=== PATIENT | female | born 1950 ===

== ENCOUNTER 2022-01-09 19:14 | Emergency (ER) | payer MEDICARE ==
--- NOTE | 2022-01-09 21:21 | Emergency Department Report ---
ED General Adult HPI - General Chief complaint: Abdominal Pain Stated complaint: PER [facility] LOW O2 Time Seen by Provider: 01/09/22 20:43 Source: patient, EMS Mode of arrival: Stretcher Limitations: Physical Limitation - History of Present Illness Initial comments: Chief complaint: I am not hurting. Get me out of here. HPI: This is a 71-year-old female with history of diabetes mellitus, HIV, CVA, HTN who presents with low oxygen. Patient has transient abdominal pain. She is now pain free. -: Gradual, hour(s) (2 hours) Location: abdomen Radiation: abdomen Severity scale (0 -10): 0 Quality: dull Consistency: now resolved Improves with: none Worsens with: none Associated Symptoms: denies other symptoms Treatments Prior to Arrival: none, other (EMS transportation) - Related Data Allergies Allergy/AdvReac Type Severity Reaction Status Date / Time No Known Allergies Allergy Unverified 01/09/22 20:31 ED Review of Systems ROS: Stated complaint: PER [facility] LOW O2 Other details as noted in HPI Comment: All other systems reviewed and negative Constitutional: denies: chills, fever, malaise Respiratory: denies: cough, shortness of breath Cardiovascular: denies: chest pain Gastrointestinal: abdominal pain. denies: nausea, vomiting ED Past Medical Hx - Past Medical History Previous Medical History?: Yes Hx Diabetes: Yes Hx HIV: Yes Additional medical history: Dysphagia. Embolism - Surgical History Past Surgical History?: No - Social History Smoking Status: Current Every Day Smoker Substance Use Type: None, Cocaine ED Physical Exam - General Limitations: Physical Limitation General appearance: alert, in no apparent distress - Head Head exam: Present: atraumatic, normocephalic - Eye Eye exam: Present: normal appearance - ENT ENT exam: Present: mucous membranes moist - Neck Neck exam: Present: normal inspection, full ROM - Respiratory Respiratory exam: Present: normal lung sounds bilaterally. Absent: respiratory distress, wheezes, rales, rhonchi - Cardiovascular Cardiovascular Exam: Present: regular rate, normal rhythm, normal heart sounds. Absent: systolic murmur, diastolic murmur, rubs, gallop - GI/Abdominal GI/Abdominal exam: Present: soft, normal bowel sounds. Absent: distended, tenderness, guarding, rebound - Extremities Exam Extremities exam: Present: other (Manage right medial leg) - Back Exam Back exam: Present: normal inspection - Neurological Exam Neurological exam: Present: alert, oriented X3 - Psychiatric Psychiatric exam: Present: normal affect, normal mood - Skin Skin exam: Present: warm, dry, intact, normal color. Absent: rash ED Course Vital Signs 01/09/22 01/09/22 20:20 20:35 Temperature 99 F 97.5 F L Pulse Rate 120 H 106 H Respiratory 18 17 Rate Blood Pressure 90/60 Blood Pressure 126/77 [Left] O2 Sat by Pulse 92 100 Oximetry ED Medical Decision Making - Lab Data Vital Signs - 24 hr 01/09/22 01/09/22 20:20 20:35 Temperature 99 F 97.5 F L Pulse Rate 120 H 106 H Respiratory 18 17 Rate Blood Pressure 90/60 Blood Pressure 126/77 [Left] O2 Sat by Pulse 92 100 Oximetry - Medical Decision Making Patient presents from [facility] with report of low oxygen saturation. On arrival oxygen saturation 99% on room air. Current vital signs heart rate 99, blood pressure 118/60 respiratory rate 16 oxygen saturation remains 99% on room air. Patient's tachycardia and hypotension were estimated numbers upon arrival. Patient's range of blood pressure systolic 117 to 126 mmH g. Critical care attestation.: If time is entered above; I have spent that time in minutes in the direct care of this critically ill patient, excluding procedure time. ED Disposition Clinical Impression: Abnormal vital signs, Abdominal pain Disposition: [address] [place] [address] Is pt being admited?: No Does the pt Need Aspirin: No Condition: Stable Instructions: Abdominal Pain (ED)
[2022-01-10 08:40] VITALS: BP 125/99
== END 2022-01-10 08:41 ==
LOC: ED 19:14
DX: R10.9 Unspecified abdominal pain (principal); R94.2 Abnormal results of pulmonary function studies; E11.9 Type 2 diabetes mellitus without complications; F17.200 Nicotine dependence, unspecified, uncomplicated; F14.90 Cocaine use, unspecified, uncomplicated; Z79.899 Other long term (current) drug therapy
CPT/HCPCS: 99283

== ENCOUNTER 2022-02-07 16:37 | Emergency (ER) | payer MEDICARE ==
[~2022-02-07 16:37] MED LIST: DOPamine DRIP 800 MG/D5W 250ML PreMix IV ONE; EPINEPHrine 1 MG/10 ML SYRINGE ONE; SODIUM BICARB 8.4% 50 MEQ/50 ML SYRINGE IV ONE
[2022-02-07] MEDS ORDERED: SODIUM CHLORIDE 0.9% 1000 ML 1,000 ML IV ONE (16:43)
--- NOTE | 2022-02-07 16:52 | Emergency Department Report ---
HPI - General Time Seen by Provider: 02/07/22 16:41 - HPI HPI: Room 20 The patient is a 71-year-old female present with chief complaint cardiac arrest. Per EMS the patient was found with agonal respirations in a [facility] bed. Patient last known well time was 14:30. EMS was called and arrived on scene at 16:07 to find the patient unresponsive and in asystole. ACLS protocols were initiated however EMS was unable to intubate or establish IV access so chest compressions were performed until the patient arrived in the ED. In the ED the patient was intubated by myself using a 7.0 ET tube and the glide scope. IV access was established by nursing and ACLS protocols were continued. There was eventual return of spontaneous circulation. ED Past Medical Hx - Past Medical History Hx Diabetes: Yes Hx HIV: Yes Additional medical history: Dysphagia. Embolism - Family History Family history: no significant - Social History Smoking Status: Unknown if ever smoked Substance Use Type: None, Cocaine ED Review of Systems ROS: Stated complaint: CARDIAC ARREST Other details as noted in HPI Comment: Unobtainable due to pts medical conditions Physical Exam - Physical Exam Physical Exam: GENERAL: The patient is well-developed well-nourished female lying on stretcher being bagged via BVM and receiving chest compressions from EMS. [] HEENT: Normocephalic. Atraumatic. NECK: Supple. Trachea midline CHEST/LUNGS: No spontaneous respirations, breath sounds equal bilaterally with bagging after intubation by myself HEART/CARDIOVASCULAR: No heart sounds, asystole on monitor ABDOMEN: Abdomen is soft, nontender. SKIN: There is no rash. There is no edema. There is no diaphoresis. Evidence of skin graft from left thigh NEURO: GCS 3 T MUSCULOSKELETAL: There is no evidence of acute injury. ED Course - Reevaluation(s) Reevaluation #1: 02/07/22 18:15 Family present and states that the patient is DNR and they would like to withdraw care Reevaluation #2: 02/07/22 19:46 Asystole in all leads on monitor. No spontaneous respirations. No heart sounds. Negative oculocephalic reflex. Patient - Consultations Consultation #1: 02/07/22 16:49 EKG sent to and discussed with smoke chaser Dr. Cox- not an acute AR - Central Line Placement Right Femoral Consent Obtained: emergent situation Time Out Performed: Yes Patient Placed on Monitor/Pulse Ox: Yes MD Prep: mask, gown, gloves Central Line Prep: Chlorhexidine scrub Local Anesthesia Used: Lidocaine 1% Amount of Anesthesia Used (mls): 5 Ultrasound Used for Placement: No Central Line Lumen Inserted: triple Bloods Obtained for Lab: No Central Line Position: good blood return Dressing Applied: Tegaderm Patient Tolerated Procedure: no complications Complications: other (Multiple attempts required prior to cannulation) - Chest Tube Chest Tube Location: forth interspace Size of Lao Tube (cm): 12 (Heimlich) Chest Tube Procedure: betadine prep Anesthesia: 1% Lidocaine Volume Anesthetic (ccs): 5 Sorto of Air Hanson: No Number of Attempts: 1 Tube Drainage: see nurses notes Tube Sutured to Skin: Yes Post Procedure CXR?: Yes - Intubation Time Out Performed: No Sedative: none Laryngoscope: fiberoptic video scope Size: 3 Assist Device Used: fiberoptic device ET Tube Size: 7 Tube Secured Depth (cm): 21 Tube Secured Location: lips Tube Placement Confirmation: visualized tube passing t, equal breath sounds bilat, no breath sounds over epi, confirmation by capnometr Patient Tolerated Procedure: no complications Intubation Complications: none ED Medical Decision Making - Lab Data Laboratory Tests 02/07/22 17:45 ABG pH 7.141 L* ABG pCO2 27.8 ABG pO2 299.1 H ABG HCO3 9.3 L ABG O2 Saturation 99.4 H ABG O2 Content 9.2 ABG Base Excess -18.1 L ABG Hemoglobin 6.1 L ABG Carboxyhemoglobin 1.0 ABG Methemoglobin 0.4 Oxyhemoglobin 98.1 FiO2 100 - Radiology Data Radiology results: report reviewed (Chest x-ray #1, chest x-ray #2), image reviewed (Chest x-ray #1, chest x-ray #2) interpreted by me: Chest x-ray #1-ET tube in appropriate position. Small apical pneumothorax. Chest x-ray #2-chest tube in appropriate position. Interval resolution of apical pneumothorax. [facility] [address] [place] [address] XRay Report Signed Patient: JOI WALTERS MR#: [id number] : 1950 Acct:[id number] Age/Sex: 71 / F ADM Date: 02/07/22 Loc: ED Attending Dr: Ordering Physician: YOSSI BARBA MD Date of Service: 02/07/22 Procedure(s): XR chest 1V ap Accession Number(s): [id number] cc: YOSSI BARBA MD Fluoro Time In Minutes: CHEST 1 VIEW INDICATION / CLINICAL INFORMATION: Status postcardiac arrest. COMPARISON: None available. FINDINGS: SUPPORT DEVICES: Endotracheal tube is present. The tip is approximately 1.9 cm from the moises. HEART / MEDIASTINUM: No significant abnormality. LUNGS / PLEURA: There is a small right pneumothorax. The vertical diameter in the right lung apex measures 1.9 cm. There is some mild pulmonary vascular congestion and some minimal bibasilar atelectasis, otherwise the lungs are grossly clear. ADDITIONAL FINDINGS: I suspect there are some subtle right rib fractures present as gas is seen in the soft tissues overlying the right lateral chest wall. Fractures are not confidently identified radiographically but presumably account for the small right pneumothorax. There is no hemothorax or significant effusion present. IMPRESSION: 1. Small right pneumothorax. The presence of subcutaneous gas in the right lateral chest soft tissues which suggest the presence of probable rib fractures although they are not confidently identified. 2. Mild pulmonary vascular congestion and mild bibasilar atelectasis, otherwise the lungs are grossly clear. CRITICAL RESULT: Time of Discovery: 1557 HRS FUSION ANALYST Time of Communication: 1600 hours FUSION ANALYST Licensed Practitioner Receiving Report: Dr. BARBA Read Back Performed: Yes. Signer Name: Naya Parsons MD Signed: 02/07/2022 5:00 PM Workstation Name: [id number] Transcribed By: JR Dictated By: Naya Parsons MD Electronically Authenticated By: Naya Parsons MD Signed Date/Time: 02/07/22 1700 DD/ 53 TD/TT: [facility] [address] [place] [address] XRay Report Signed Patient: JOI WALTERS MR#: [id number] : 1950 Acct:[id number] Age/Sex: 71 / F ADM Date: 02/07/22 Loc: ED Attending Dr: Ordering Physician: YOSSI BARBA MD Date of Service: 02/07/22 Procedure(s): XR chest 1V ap Accession Number(s): [id number] cc: YOSSI BARBA MD Fluoro Time In Minutes: CHEST 1 VIEW INDICATION / CLINICAL INFORMATION: Status post chest tube. COMPARISON: 02/07/2022 at 1647 hours FINDINGS: SUPPORT DEVICES: Interval placement of smallbore right chest tube. HEART / MEDIASTINUM: No significant abnormality. LUNGS / PLEURA: Previously noted pulmonary vascular congestion and bibasilar atelectasis has shown improvement. Previously noted small right pneumothorax has resolved following placement of chest tube. ADDITIONAL FINDINGS: Subcutaneous air in the right lateral chest wall and breast persists. A few anterolateral right rib fractures are now visible. IMPRESSION: 1. Resolution of previously noted small right pneumothorax following right chest tube. 2. Overall improvement in the appearance of the lungs. 3. A few right anterolateral rib fractures are now visible. Signer Name: Naya Parsons MD Signed: 02/07/2022 6:15 PM Workstation Name: [id number] Transcribed By: JR Dictated By: Naya Parsons MD Electronically Authenticated By: Naya Parsons MD Signed Date/Time: 02/07/221814 DD/ 13 TD/TT: - Differential Diagnosis Cardiac arrest Critical care attestation.: If time is entered above; I have spent that time in minutes in the direct care of this critically ill patient, excluding procedure time. ED Disposition Clinical Impression: Cardiac arrest, Pneumothorax Disposition: 20 Is pt being admited?: No Does the pt Need Aspirin: No Condition: Poor Time of Disposition: 19:46 (Patient )
--- NOTE | 2022-02-07 17:05 | XRay Report ---
CHEST 1 VIEW INDICATION / CLINICAL INFORMATION: Status postcardiac arrest. COMPARISON: None available. FINDINGS: SUPPORT DEVICES: Endotracheal tube is present. The tip is approximately 1.9 cm from the moises. HEART / MEDIASTINUM: No significant abnormality. LUNGS / PLEURA: There is a small right pneumothorax. The vertical diameter in the right lung apex luther sures 1.9 cm. There is some mild pulmonary vascular congestion and some minimal bibasilar atelectasis , otherwise the lungs are grossly clear. ADDITIONAL FINDINGS: I suspect there are some subtle right rib fractures present as gas is seen in th e soft tissues overlying the right lateral chest wall. Fractures are not confidently identified radio graphically but presumably account for the small right pneumothorax. There is no hemothorax or signif icant effusion present. IMPRESSION: 1. Small right pneumothorax. The presence of subcutaneous gas in the right lateral chest soft tissues which suggest the presence of probable rib fractures although they are not confidently identified. 2. Mild pulmonary vascular congestion and mild bibasilar atelectasis, otherwise the lungs are grossly clear. CRITICAL RESULT: Time of Discovery: 1557 HRS LINE CONSTRUCTION SUPERINTENDENT Time of Communication: 1600 hours LINE CONSTRUCTION SUPERINTENDENT Licensed Practitioner Receiving Report: Dr. BARBA Read Back Performed: Yes. Signer Name: Naya Parsons MD Signed: 02/07/2022 5:00 PM Workstation Name: [id number]
[2022-02-07] MEDS ORDERED: LIDOCAINE (1%) 10 MG/1 ML VIAL 20 ML MDV INFILTRATI ONE (17:24)
[2022-02-07] MEDS ORDERED: DOPamine 800 MG/D5W 250ML 800 MG/250 ML BAG IV ONE ×2 (17:49→18:07)
[2022-02-07 17:53] LABS: ABG Base Excess -18.1 mmol/L (-2.0-3.0); ABG HCO3 9.3 mmol/L (20.0-26.0); ABG Methemoglobin 0.4 % (0.0-1.5); ABG Oxygen Saturation 99.4 % (95.0-99.0); ABG PCO2 27.8 mm Hg
[2022-02-07 17:55] LABS: ABG PO2 299.1 mm Hg (80.0-90.0)
[2022-02-07 17:57] LABS: ABG PH 7.141 pH Units (7.350-7.450)
[2022-02-07] MEDS ORDERED: NORepinephrine/NS 8 MG-250 ML 8 MG/250 ML INFUS..BTL IV SCH (18:00)
--- NOTE | 2022-02-07 18:19 | XRay Report ---
CHEST 1 VIEW INDICATION / CLINICAL INFORMATION: Status post chest tube. COMPARISON: 02/07/2022 at 1647 hours FINDINGS: SUPPORT DEVICES: Interval placement of smallbore right chest tube. HEART / MEDIASTINUM: No significant abnormality. LUNGS / PLEURA: Previously noted pulmonary vascular congestion and bibasilar atelectasis has shown im provement. Previously noted small right pneumothorax has resolved following placement of chest tube. ADDITIONAL FINDINGS: Subcutaneous air in the right lateral chest wall and breast persists. A few ante rolateral right rib fractures are now visible. IMPRESSION: 1. Resolution of previously noted small right pneumothorax following right chest tube. 2. Overall improvement in the appearance of the lungs. 3. A few right anterolateral rib fractures are now visible. Signer Name: Naya Parsons MD Signed: 02/07/2022 6:15 PM Workstation Name: [id number]
[2022-02-07 19:39] VITALS: BP 46/20
--- NOTE | 2022-02-09 14:12 | Electrocardiograph Report ---
[facility] Test Date: 2022-02-07 Test Time: 16:46:36 Pat Name: JOI WALTERS Department: Room: Gender: F [employer] Car Mechanic: MONIQUE : 1950 Requested By: YOSSI BARBA Order Number: [id number] Reading MD: Cee Hutton Measurements Intervals [place] Rate: 77 P: 66 ND: 171 QRS: 35 QRSD: 77 T: 9 QT: 381 QTc: 435 Interpretive Statements Poor data quality Sinus rhythm Low voltage, extremity leads Nonspecific ST changes No previous ECG available for comparison Electronically Signed On 02-09-2022 14:12:09 EDT by Cee Hutton
== END 2022-02-07 21:04 ==
LOC: ED 16:37
DX: I46.9 Cardiac arrest, cause unspecified (principal)
CPT/HCPCS: 31500; 32551; 36556; 71045; 82803; 92950; 93005; 96360; 96361; 99285; J0171; J1265; J2354; J7030; 94002